=== PATIENT | female | born 1975 | race Two or more races ===

== ENCOUNTER 2024-01-16 21:52 | Emergency (ER) | payer MEDICAID, OTHER ==
[~2024-01-16] VITALS: Ht 162.6 cm; Wt 74.8 kg
[2024-01-17] MEDS ORDERED: KETOROLAC TROMETHAMINE 15 MG/ML VIAL ONE (00:19)
[2024-01-17] MEDS ORDERED: LIDOCAINE 5% (PATCH) 1 EA PATCH TP ONE (00:19)
[2024-01-17] MEDS ORDERED: ACETAMINOPHEN ES 500 MG TABLET ONE (00:19)
[2024-01-17] MEDS ORDERED: CYCLOBENZAPRINE 10 MG TABLET ONE (00:20)
[2024-01-17] MEDS: ACETAMINOPHEN ES 500 MG TABLET PO ONE (00:29)
[2024-01-17] MEDS: KETOROLAC TROMETHAMINE 15 MG/ML VIAL IM ONE (00:29)
[2024-01-17] MEDS: LIDOCAINE 5% (PATCH) 1 EA PATCH TP SCH (00:29)
[2024-01-17] MEDS: CYCLOBENZAPRINE 10 MG TABLET PO ONE (00:29)
[2024-01-17 01:50] LABS: APPEARANCE,URINE CLEAR (CLEAR); BILIRUBIN,URINE 1+ (NEGATIVE); BLOOD, URINE NEGATIVE Ery/uL (NEGATIVE); COLOR,URINE YELLOW (YELLOW); KETONES,URINE NEGATIVE (NEGATIVE); LEUKOCYTE ESTERASE ,URINE NEGATIVE (NEGATIVE); NITRITE, URINE NEGATIVE (NEGATIVE); PROTEIN,URINE NEGATIVE (NEGATIVE); UGLUCOSE NEGATIVE (NEGATIVE); UROBILINOGEN,URINE 0.2 EU/dL (0.2)
[2024-01-17] MEDS ORDERED: ACET-2605 PO (01:50)
[2024-01-17] MEDS ORDERED: CYCL5TAB PO (01:50)
[2024-01-17] MEDS ORDERED: NAPR-1009 PO (01:50)
[2024-01-17 01:53] LABS: ADD URINE CULTURE NO; BACTERIA,URINE Rare /HPF (None Seen); PREGNANCY TEST URINE QUAL NEGATIVE (NEGATIVE); RBC,URINE 0-2 /HPF (0-2); SQUAMOUS EPITHELIAL CELL,UR Few /HPF (None Seen); WBC,URINE 0-2 /HPF (0-3)
[2024-01-17 04:55] VITALS: BP 142/82; TEMP 98; O2SAT 98
== END 2024-01-17 03:00 | disposition home or self-care (01) ==
LOC: ER 22:02
DX: M54.50 Low back pain, unspecified (principal); M62.830 Muscle spasm of back; R10.2 Pelvic and perineal pain; Z79.1 Long term (current) use of non-steroidal anti-inflammatories (NSAID); Z79.899 Other long term (current) drug therapy
CPT/HCPCS: 99284; 96372; 84703; 81001; J1885